=== PATIENT | male | born 1965 | race Caucasian/White ===

== ENCOUNTER 2025-02-16 11:54 | Emergency (ER) | payer OTHER ==
[~2025-02-16] VITALS: Ht 170.2 cm; Wt 70.0 kg
[2025-02-16 11:58] VITALS: O2SAT 99
[2025-02-16] MEDS: METOPROLOL TARTRATE 5MG/5ML VIAL IV ONE (12:29)
[2025-02-16] MEDS: METOPROLOL TARTRATE 25MG TABLET PO ONE (12:30)
[2025-02-16] MEDS: MORPHINE SULFATE 4 MG/ML INJ (FOR IV/IM USE) IV ONE (12:30)
[2025-02-16 12:35] LABS: BASOPHILS % 0.5 % (0.0-2.0); EOSINOPHILS % 2.7 % (0.0-5.0); HEMATOCRIT. 35.1 % (42.0-52.0); HEMOGLOBIN. 12.3 g/dL (14.0-18.0); LYMPHOCYTES % 34.2 % (20.0-50.0); MEAN PLATELET VOLUME 7.1 fl (7.4-10.4); MONOCYTES % 11.0 % (2.0-8.0); NEUTROPHILS % 51.6 % (40.0-76.0); PLATELET 240 x1000/uL (130-400); RED BLOOD CELL COUNT 4.10 mill/uL (4.7-6.1); RED CELL DISTRIBUTION WIDTH 13.8 % (11.6-14.6)
[2025-02-16 12:48] LABS: CREATININE 0.9 mg/dL (0.6-1.3); UREA NITROGEN BLOOD 14 mg/dL (9-23)
[2025-02-16 12:49] LABS: TROPONIN I HIGH SENSITIVITY < 4 ng/L (3.0-53)
[2025-02-16 16:10] VITALS: BP 112/72; PULSE 79; RESP 17; TEMP 37.2; O2SAT 99
== END 2025-02-16 18:57 | disposition left against medical advice (07) ==
LOC: ER 11:54
DX: R07.89 Other chest pain (principal); F41.9 Anxiety disorder, unspecified; E11.9 Type 2 diabetes mellitus without complications; R06.02 Shortness of breath; E78.00 Pure hypercholesterolemia, unspecified
CPT/HCPCS: 80048; 82962; 83880; 85025; 84484; 36415; 71045; 93005; 96374; 96375; 99291; J3490; J2270; Z7610 ×3; A4606